=== PATIENT | female | born 1980 | race Caucasian/White ===

== ENCOUNTER 2021-07-24 17:29 | Emergency (ER) | payer OTHER, SELFPAY ==
[2021-07-24 17:36] VITALS: BP 147/68; PULSE 86; RESP 14; TEMP 36.7; O2SAT 100
--- NOTE | 2021-07-24 18:17 | ED.GENADULT ---
HPI - General Adult General Chief complaint: Urogenital-Female Stated complaint: pos uti Source: patient Mode of arrival: ambulatory Limitations: no limitations History of Present Illness HPI narrative: Patient presents for evaluation of what she believes to be a urinary tract infection. She reports vaginal pressure, urinary frequency, hesitancy, decreased urinary output, hematuria as of today. She denies any fever, chills, nausea, vomiting, low back pain. She has had some clear vaginal discharge for a few days. She states that she knows she does not have a STI as she is and and they are monogamous with one another. She had similar symptoms in the past with UTI. LMP nine days ago. No additional complaints or concerns. Related Data Allergies Allergy/AdvReac Type Severity Reaction Status Date / Time Sulfa (Sulfonamide Allergy Mild Unknown Verified 07/24/21 17:49 Antibiotics) acetaminophen [From Tylenol] Allergy Hives Verified 07/24/21 17:49 hydrocodone Allergy Hives Verified 07/24/21 17:49 hydromorphone [From Dilaudid] Allergy Hives Verified 07/24/21 17:49 morphine Allergy Hives Verified 07/24/21 17:49 Penicillins Allergy Hives Verified 07/24/21 17:49 Review of Systems Review of Systems: CONSTITUTIONAL: Denies fever, chills, or sweats. EYES: Denies visual changes, redness, or discharge. ENT: Denies rhinorrhea, congestion, sore throat, or otalgia. CARDIOVASCULAR: Denies chest pain, palpitations, or edema. RESPIRATORY: Denies cough or dyspnea. GASTROINTESTINAL: Denies abdominal pain, nausea, vomiting, or diarrhea. GENITOURINARY: Reports vaginal pressure, urinary frequency, hesitancy, decreased urinary output, hematuria and clear vaginal discharge SKIN: Denies rash or itching. MUSCULOSKELETAL: Denies back pain, joint pain, or myalgia. NEUROLOGIC: Denies headache, numbness, dizziness, or weakness. PSYCHIATRIC: Denies anxiety or depression. [facility] Past Medical History Medical History (Updated 07/24/21 @ 18:25 by Dominguez Chi, ELIZABETH, ALICIA) No pertinent past medical history Surgical History Surgical History History of section Family History Family History Mother Hypertension Social History Social History Smoking status: Never smoker Substance use: never Living arrangements: with family Gender identity (if verbalized by the patient): Female Sexual Orientation (if Verbalized by the Patient): Straight or Heterosexual Exam Narrative: GENERAL: Well-appearing, well-nourished, and in no acute distress. HEAD: Normocephalic, atraumatic. EYES: PERRLA and EOMI. ENT: Nares clear, no rhinorrhea or epistaxis. Mucous membranes moist. Oropharynx without tonsillar hypertrophy exudate or other lesions. Bilateral TMs pearly lambert nonbulging NECK: Supple. No adenopathy or masses. No carotid bruits or JVD CHEST: Clear to auscultation. No respiratory distress. No wheezes rales or rhonchi HEART: Regular rate and rhythm. No murmur heard. Normal peripheral pulses. ABDOMEN: Soft, nontender, nondistended, normal active bowel sounds. No CVA tenderness EXTREMITIES: Normal range of motion. No edema. SKIN: Warm, dry, no rash. NEURO: No focal deficits. Alert and oriented x3. PSYCH: Normal mood and affect. Course Course Emergency Course: This is a 40-year-old female who presents with urinary symptoms that she attributes to a urinary tract infection. Urine is nitrate positive. Will tx with macrobid and send urine for C+S. She does not feel pelvic exam was necessary as clear vaginal discharge only present on the tissue with wiping after urinating. She states she does not believe vaginal discharge is related to BV or STI. She should follow up this coming week for further evaluation and treatment and return for worsening symptoms.
== END 2021-07-24 18:36 | disposition home or self-care (01) ==
PROVIDERS: Emergency Provider Nurse Practitioner; PCP Internal Medicine
DX: N30.01 Acute cystitis with hematuria (principal); J45.909 Unspecified asthma, uncomplicated
CPT/HCPCS: 81003; 87077; 87086; 87088; 87186; 99213; G0463